=== PATIENT | male | born 1975 | race Caucasian/White ===

== ENCOUNTER 2020-07-30 09:44 | Emergency (ER) | payer SELFPAY ==
[2020-07-30] MEDS ORDERED: Ondansetron 4 MG/2 ML SDV IVPUSH ONE ×2 (09:46→11:43)
[2020-07-30] MEDS ORDERED: Sodium Chloride 0.9% 10 ML Syringe FLUSH PRN (09:46)
[2020-07-30] MEDS ORDERED: Famotidine 20 MG/2 ML SDV IVPUSH ONE (09:46)
[2020-07-30] MEDS ORDERED: Pantoprazole 40 MG Vial IVPUSH ONE (09:46)
[2020-07-30] MEDS ORDERED: Lactated Ringers 1,000 ML IV ONE (09:46)
--- NOTE | 2020-07-30 09:46 | EDM.PDOC ---
ED HPI GENERAL MEDICAL PROBLEM - General Chief Complaint: Abdominal Pain Stated Complaint: renal flank pain Time Seen by Provider: 07/30/20 09:45 Source of Information: Reports: Patient, Old Records ([facility] EMR. 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 with symptoms starting suddenly at work at about 7:30 AM. His symptoms actually started while he was having a bowel movement earlier this morning. No recent history of other abdominal pain, heartburn, emesis, diarrhea, melena, gross hematochezia, or any food intolerance, including fatty foods, etc., with normal small bowel movement earlier this is morning as above. He denies any gross hematuria or other UTI symptoms. The patient denies any chest pain/pressure, heart flutter, dizziness, orthostasis, orthopnea, paresthesias, recent decreased exercise tolerance, or any other anginal-type symptoms. The patient also denies any recent fever, cough, wheezing, dyspnea, etc.. No previous history of urolithiasis with no medications or treatment prior to arrival. Onset: Today, Sudden Onset Date: 07/30/20 Onset Time: 07:30 Duration: Intermittent Location: Reports: Abdomen (Right CVA). Denies: Head, Face, Neck, Chest, Back, Pelvis, Upper Extremity, Left, Upper Extremity, Right, Lower Extremity, Left, Lower Extremity, Right, Radiates to Quality: Reports: Stabbing Severity: Severe Improves with: Reports: None Worsens with: Reports: None Context: Reports: Other (As above). Denies: Lifting, Sick Contact, Trauma Associated Symptoms: Reports: Diaphoresis, Nausea/Vomiting (No emesis). Denies: Confusion, Chest Pain, Cough, Fever/Chills, Rash, Shortness of Breath, Syncope, Weakness Treatments CLIENT RELATION SPECIALIST: Reports: Other (see below) (None) left flank Pain Score (Numeric/FACES): 10 - Related Data Allergies Allergy/AdvReac Type Severity Reaction Status Date / Time No Known Drug Allergies Allergy Other Verified 11/18/16 23:34 Home Meds: Home Meds . [No Known Home Meds] 03/11/14 [History] Past Medical History Cardiovascular History: Reports: Arrhythmia, Hypertension, Other (See Below) Other Cardiovascular History: Previous history of hypertension including medical therapy. Unknown type of cardiac arrhythmia. Musculoskeletal History: Reports: Arthritis, Fracture, Osteoarthritis, Other (See Below) Other Musculoskeletal History: Right distal fibular fracture/ankle fracture on 11/18/2016 requiring surgeries as below. Left clavicular fracture at age 10. Psychiatric History: Reports: Addiction, Anxiety, Bipolar, Depression, Panic Attack, Psych Hospitalization(s), Suicidal Ideation, Other (See Below). Denies: Suicide Attempt Other Psychiatric History: Illicit drug use as below. Note history of single ideation on 03/11/2014 with subsequent hospitalization in [place]. Endocrine/Metabolic History: Reports: Obesity/BMI 30+ - Infectious Disease History Infectious Disease History: Reports: Novel Coronavirus (February 2020.) - Past Surgical History Musculoskeletal Surgical History: Reports: ORIF, Other (See Below) Other Musculoskeletal Surgeries/Procedures:: ORIF of right ankle/distal fibular fracture in October 2016 with subsequent unsuccessful incomplete hardware removal complicated by additional fracture at that time by patient history. 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 ED EXAM, RENAL/ - Physical Exam Exam: See Below Exam Limited By: No Limitations General Appearance: Alert, WD/WN, No Apparent Distress, Anxious (Mild to moderate) Head: Atraumatic, Normocephalic Neck: Normal Inspection, Supple, Non-Tender, Full Range of Motion. No: Lymphadenopathy (L), Lymphadenopathy (R), Thyromegaly Respiratory/Chest: No Respiratory Distress, Lungs Clear, Normal Breath Sounds, No Accessory Muscle Use, Chest Non-Tender. No: Pleural Rub, Retractions Cardiovascular: Normal Peripheral Pulses, Regular Rate, Rhythm, No Edema, No Gallop, No JVD, No Murmur, No Rub. No: Gallop/S3, Gallop/S4, Friction Rub GI/Abdominal: Normal Bowel Sounds, Soft, Non-Tender, No Organomegaly, No Distention, No Abnormal Bruit, No Mass, Pelvis Stable. No: Guarding (Male) Exam: Deferred Rectal (Males) Exam: Deferred Back Exam: Full Range of Motion. No: CVA Tenderness (L), CVA Tenderness (R) (No pain by palpation, although colic as above.), Decreased Range of Motion, Muscle Spasm, Paraspinal Tenderness, Vertebral Tenderness Extremities: Normal Inspection, Normal Range of Motion, Non-Tender, No Pedal Edema, Normal Capillary Refill. No: Geovany's Sign Neurological: Alert, Oriented, CN II-XII Intact, Normal Cognition, Normal Gait, No Motor/Sensory Deficits Psychiatric: Anxious (Mild to moderate), Depressed Mood (Borderline) Skin Exam: Warm, Dry, Intact, Normal Color, No Rash. No: Diaphoretic, Ecchymos is, Jaundice, Petechiae, Wound/Incision Lymphatic: No Adenopathy Course - Vital Signs Last Recorded V/S: Last Vital Signs Temp 36.2 C 07/30/20 09:44 Pulse 71 07/30/20 12:07 Resp 22 H 07/30/20 09:44 BP 164/97 H 07/30/20 12:07 Pulse Ox 98 07/30/20 10:28 Vital Signs - 24 hr 07/30/20 07/30/20 07/30/20 09:44 10:28 12:07 Temperature [ 36.2 C Temporal] Pulse, 70 64 71 Peripheral [ Left Pulse Oximetry] Respiratory 22 H Rate Blood Pressure 161/113 H 150/98 H 164/97 H [Left Upper Arm ] O2 Sat by Pulse 96 98 Oximetry - Orders/Labs/Meds Orders: Active Orders 24 hr Category Date Time Status Peripheral IV Care [RC] . DIRECTED Care 07/30/20 09:46 Active Nothing Per Oral Diet [DIET] Diet 07/30/20 Breakfast Active Abdomen Pelvis wo Cont [CT] Stat Exams 07/30/20 09:47 Taken CULTURE URINE [RM] Stat Lab 07/30/20 09:46 Received INR,PT,PROTHROMBIN TIME [COAG] Stat Lab 07/30/20 09:46 Ordered PTT,PARTIAL THROMBOPLSTIN TIME [COAG] Stat Lab 07/30/20 09:46 Ordered Sodium Chloride 0.9% [Saline Flush] Med 07/30/20 09:46 Active 10 ml FLUSH ASDIRECTED PRN Obtain Past Medical Record [OM.PC] Urgent Oth 07/30/20 09:46 Active Peripheral IV Insertion Adult [OM.PC] Stat Oth 07/30/20 09:46 Ordered Resuscitation Status Stat Resus Stat 07/30/20 09:46 Ordered Medication Orders Sodium Chloride (Saline Flush) 10 ml FLUSH ASDIRECTED PRN PRN Reason: Keep Vein Open Last Admin: 07/30/20 10:01 Dose: 10 ml Documented by: SLAVA Labs: Laboratory Tests 07/30/20 07/30/20 07/30/20 Range/Units 09:50 09:50 09:50 WBC 7.0 (4.0-10.2) K/uL RBC 5.27 (4.33-5.41) M/uL Hgb 16.0 (13.1-16.8) g/dL Hct 46.1 (39.0-49.0) % MCV 87.5 (84.0-98.0) fL MCH 30.4 (28.2-33.3) pg MCHC 34.7 (31.7-36.0) g/dL RDW 13.5 (11.2-14.1) % Plt Count 155 (150-350) K/uL Neut % (Auto) 58.8 (45.0-80.0) % Lymph % (Auto) 30.4 (10.0-50.0) % [place] % (Auto) 7.4 (2.0-14.0) % Eos % (Auto) 3.0 (0.0-5.0) % Baso % (Auto) 0.4 (0.0-2.0) % Neut # (Auto) 4.12 (1.40-7.00) K/uL Lymph # (Auto) 2.13 (0.50-3.50) K/uL [place] # (Auto) 0.52 (0.00-1.00) K/uL Eos # (Auto) 0.21 (0.00-0.50) K/uL Baso # (Auto) 0.03 (0.00-0.20) K/uL Sodium 136 (136-145) mmol/L Potassium 4.1 (3.5-5.1) mmol/L Chloride 103 (98-107) mmol/L Carbon Dioxide 22.9 (21.0-32.0) mmol/L BUN 11 (7-18) mg/dL Creatinine 0.90 (0.51-1.17) mg/dL Est Cr Clr Drug Dosing TNP Estimated GFR (MDRD) > 60 mL/min Glucose 98 (74-106) mg/dL Lactic Acid (0.4-2.0) mmol/L Uric Acid 6.4 (2.6-7.2) mg/dL Calcium 9.2 (8.5-10.1) mg/dL Magnesium 1.7 L (1.8-2.4) mg/dL Total Bilirubin 1.1 H (0.2-1.0) mg/dL AST 36 (15-37) U/L ALT 46 (12-78) U/L Alkaline Phosphatase 62 (46-116) IU/L Total Protein 7.8 (6.4-8.2) g/dL Albumin 4.3 (3.4-5.0) g/dL Amylase 43 (25-115) U/L Lipase 177 (73-393) U/L Specimen Type Urine Color Urine Appearance Urine pH (5.0-9.0) Ur Specific Marion (1.005-1.030) Urine Protein (NEGATIVE) mg/dL Urine Glucose (UA) (NEGATIVE) mg/dL Urine Ketones (NEGATIVE) mg/dL Urine Occult Blood (NEGATIVE) Urine Nitrite (NEGATIVE) Urine Bilirubin (NEGATIVE) Urine Urobilinogen (0.2-1.0) E.U./dL Ur Leukocyte Esterase (NEGATIVE) Urine RBC /HPF Urine WBC /HPF Ur Epithelial Cells /LPF Urine Bacteria (NONE TO FEW) /HPF Urine Mucus (NEGATIVE) /LPF 07/30/20 07/30/20 Range/Units 09:50 11:15 WBC (4.0-10.2) K/uL RBC (4.33-5.41) M/uL Hgb (13.1-16.8) g/dL Hct (39.0-49.0) % MCV (84.0-98.0) fL MCH (28.2-33.3) pg MCHC (31.7-36.0) g/dL RDW (11.2-14.1) % Plt Count (150-350) K/uL Neut % (Auto) (45.0-80.0) % Lymph % (Auto) (10.0-50.0) % [place] % (Auto) (2.0-14.0) % Eos % (Auto) (0.0-5.0) % Baso % (Auto) (0.0-2.0) % Neut # (Auto) (1.40-7.00) K/uL Lymph # (Auto) (0.50-3.50) K/uL [place] # (Auto) (0.00-1.00) K/uL Eos # (Auto) (0.00-0.50) K/uL Baso # (Auto) (0.00-0.20) K/uL Sodium (136-145) mmol/L Potassium (3.5-5.1) mmol/L Chloride (98-107) mmol/L Carbon Dioxide (21.0-32.0) mmol/L BUN (7-18) mg/dL Creatinine (0.51-1.17) mg/dL Est Cr Clr Drug Dosing Estimated GFR (MDRD) mL/min Glucose (74-106) mg/dL Lactic Acid 1.7 (0.4-2.0) mmol/L Uric Acid (2.6-7.2) mg/dL Calcium (8.5-10.1) mg/dL Magnesium (1.8-2.4) mg/dL Total Bilirubin (0.2-1.0) mg/dL AST (15-37) U/L ALT (12-78) U/L Alkaline Phosphatase (46-116) IU/L Total Protein (6.4-8.2) g/dL Albumin (3.4-5.0) g/dL Amylase (25-115) U/L Lipase (73-393) U/L Specimen Type Urinvoid Urine Color Dark yellow Urine Appearance Clear Urine pH 6.0 (5.0-9.0) Ur Specific Marion 1.025 (1.005-1.030) Urine Protein Trace H (NEGATIVE) mg/dL Urine Glucose (UA) Negative (NEGATIVE) mg/dL Urine Ketones Trace H (NEGATIVE) mg/dL Urine Occult Blood Negative (NEGATIVE) Urine Nitrite Negative (NEGATIVE) Urine Bilirubin Small H (NEGATIVE) Urine Urobilinogen 1.0 (0.2-1.0) E.U./dL Ur Leukocyte Esterase Negative (NEGATIVE) Urine RBC 0-5 /HPF Urine WBC 0-5 /HPF Ur Epithelial Cells Rare /LPF Urine Bacteria Few (NONE TO FEW) /HPF Urine Mucus Moderate H (NEGATIVE) /LPF Urine specimen set up for culture and sensitivity Meds: Medications Generic Name Dose Route Start Last Admin Trade Name Freq PRN Reason Stop Dose Admin Sodium Chloride 10 ml 07/30/20 09:46 07/30/20 10:01 Saline Flush FLUSH 10 ml ASDIRECTED PRN Administration Keep Vein Open Discontinued Medications Generic Name Dose Route Start Last Admin Trade Name Freq PRN Reason Stop Dose Admin Famotidine 40 mg 07/30/20 09:46 07/30/20 10:04 Pepcid IVPUSH 07/30/20 09:47 40 mg ONETIME ONE Administration Hydromorphone HCl 1 mg 07/30/20 11:43 07/30/20 11:54 Dilaudid IVPUSH 07/30/20 11:44 1 mg ONETIME ONE Administration Lactated Ringer's 1,000 mls @ 999 mls/hr 07/30/20 09:46 07/30/20 10:04 Ringers, Lactated IV 07/30/20 10:46 999 mls/hr .BOLUS ONE Administration Ketorolac Tromethamine 30 mg 07/30/20 09:47 07/30/20 09:50 Toradol IVPUSH 07/30/20 09:48 30 mg ONETIME ONE Administration Ondansetron HCl 4 mg 07/30/20 09:46 07/30/20 10:01 Zofran IVPUSH 07/30/20 09:47 4 mg ONETIME ONE Administration Ondansetron HCl 4 mg 07/30/20 11:43 07/30/20 11:54 Zofran IVPUSH 07/30/20 11:44 4 mg ONETIME ONE Administration Pantoprazole Sodium 40 mg 07/30/20 09:46 07/30/20 10:04 Protonix Iv IVPUSH 07/30/20 09:47 40 mg ONETIME ONE Administration Tamsulosin HCl 0.4 mg 07/30/20 09:47 07/30/20 10:05 Flomax PO 07/30/20 09:48 0.4 mg ONETIME ONE Administration - Radiology Interpretation Free Text/Narrative:: CT scan of the abdomen and pelvis without contrast using stone protocol was negative for urolithiasis, hydronephrosis, etc. Incidental findings of multilevel lumbar osteoarthritic changes and additional fatty liver. Preliminary verbal report was not received from the radiology department at [facility] as previously requested. Departure - Departure Time of Disposition: 12:22 Disposition: Home, Self-Care 01 Condition: Good Clinical Impression: Abdominal pain, Tobacco abuse counseling, Mixed anxiety and depressive disorder, Osteoarthritis, Hyperbilirubinemia, Hypomagnesemia, Fatty liver, Hypertension - Discharge Information *PRESCRIPTION DRUG MONITORING PROGRAM REVIEWED*: Not Applicable *COPY OF PRESCRIPTION DRUG MONITORING REPORT IN PATIENT MALIHA: Not Applicable Instructions: Kidney Stones, [id number], Smokeless Tobacco Information, Adult Referrals: PCP,None [Primary Care Provider] - Forms: ED Department Discharge, ED Return to Work/School Form Additional Instructions: 1. Followup with your regular provider in 5-7 days as directed for reevaluation and recommended repeat LFTs and magnesium level. Your provider may order a kidney ultrasound, additional blood work, etc. at that time depending on your symptoms. Bring these discharge instructions with you to that visit. 2. Tylenol 650 mg by mouth every 4 hours and/or OTC ibuprofen 2-3 tabs by mouth every 6 hours with food as directed./needed. You may stagger these medications for 48-72 hours only, which essentially means that you are receiving a pain medication about every 2 hours. Next dose of ibuprofen in 6 hours as needed secondary to medications given in the emergency room 3. BenGay or equivalent, heating pad, and/or ice packs as directed. 4. Strain all urine and bring stone to your regular provider or this facility as directed for further stone analysis. 5. Work excuse- See Form 6. Stop all tobacco use ALTAGRACIA as directed/per provided information and consider contacting Quit LIne, etc.. 7. Immediately after this visit verify that your cellular telephone's voicemail has been activated and is empty. Also verify that your home telephone's answering machine is operating properly and has space to receive messages. Note that it is sometimes necessary for us to be able to contact you at a later date to discuss your medical care. 8. Please remember that we are ALWAYS here for you and want to answer any questions you may have. Feel free to call the hospital any time and we call you back ALTAGRACIA. 9. Waldo diet including encouragement of oral fluids such as sports drinks, etc. for 24-48 hours as directed. Advance to regular diet as tolerated thereafter. 10. Sedation precautions with no driving, etc. for 18 hours because of emergency room medications. 11. Continue to observe your blood pressures closely through your regular provider. Sepsis Event Note (ED) - Focused Exam Vital Signs: Vital Signs Temp Pulse Resp BP Pulse Ox 07/30/20 12:07 71 164/97 H 07/30/20 10:28 64 150/98 H 98 07/30/20 09:44 36.2 C 70 22 H 161/113 H 96 - Problem List & Annotations (1) Abdominal pain SNOMED Code(s): 88608763 Code(s): R10.9 - UNSPECIFIED ABDOMINAL PAIN Status: Acute Priority: High Current Visit: Yes Onset Date: 07/30/20 Annotation/Comment:: Despite negative CT of the abdomen and pelvis as above for urolithiasis strong evidence of probable colic with nonvisible small urolithiasis based on patient's history and symptoms in the emergency room. Patient was bolused with 1 L of lactated Ringer's and initially given Flomax and IV Toradol as above. The patient initially did not wish to have any further narcotic pain medication secondary to his previous substance abuse, however he did request additional pain control. IV Dilaudid given shortly prior to patient's discharge with excellent results with sedation precautions given. IV Zofran was used to control the patient's nausea also with good results. Work excuse provided. Close follow-up by regular provider as per discharge instructions. Qualifiers: Abdominal location: right upper quadrant Qualified Code(s): R10.11 - Right upper quadrant pain (2) Tobacco abuse counseling SNOMED Code(s): 992808230, 470522157, 166312064 Code(s): Z71.6 - TOBACCO ABUSE COUNSELING Status: Chronic Priority: Medium Current Visit: Yes Annotation/Comment:: The patient was counseled on the use of Nicorette gum with chewing tobacco cessation strongly encouraged and information provided at discharge. (3) Mixed anxiety and depressive disorder SNOMED Code(s): 891840065 Code(s): F41.8 - OTHER SPECIFIED ANXIETY DISORDERS Status: Chronic Priority: Medium Current Visit: Yes Annotation/Comment:: Mild to moderate control based on today's exam. Note previous history of illicit drug use and current daily marijuana use. Patient does not wish to be on medications for his anxiety at this time and prefers to stay on his marijuana for the time being. Continue to observe closely by his regular providers. In addition, note previous history of bipolar disorder and panic attacks. (4) Osteoarthritis SNOMED Code(s): 017599084 Code(s): M19.90 - UNSPECIFIED OSTEOARTHRITIS, UNSPECIFIED SITE Status: Chronic Priority: Medium Current Visit: Yes Annotation/Comment:: Stable by history with the patient stating that his current symptoms do not appear muscular/back pain in nature, which does correlate with/confirm my physical exam today. No recent injury. This is not a Workmen's Compensation injury with colic once again being the suspected diagnosis. Qualifiers: Osteoarthritis location: multiple joints Osteoarthritis type: primary Qualified Code(s): M89.49 - Other hypertrophic osteoarthropathy, multiple sites (5) Hyperbilirubinemia SNOMED Code(s): 45000523 Code(s): E80.6 - OTHER DISORDERS OF BILIRUBIN METABOLISM Status: Chronic Priority: Medium Current Visit: Yes Annotation/Comment:: No other LFTs elevation. Close follow-up by regular provider as per discharge instructions. Note incidental fatty liver by CT scan today as above. Amylase and lipase are normal. Weight loss in moderation was advised, however the patient did not wish to have a low-fat, low-cholesterol diet provided to him at this time. (6) Hypomagnesemia SNOMED Code(s): 760974678 Code(s): E83.42 - HYPOMAGNESEMIA Status: Acute Priority: Medium Current Visit: Yes Onset Date: 07/30/20 Annotation/Comment:: Observe for now. Close follow-up by regular provider with initiation of magnesium oxide supplementation at that time depending on his clinical course. (7) Fatty liver SNOMED Code(s): 231966007 Code(s): K76.0 - FATTY (CHANGE OF) LIVER, NOT ELSEWHERE CLASSIFIED Status: Acute Priority: Medium Current Visit: Yes Onset Date: 07/30/20 Annotation/Comment:: As above (8) Hypertension SNOMED Code(s): 09246000 Code(s): I10 - ESSENTIAL (PRIMARY) HYPERTENSION Status: Chronic Priority: High Current Visit: Yes Annotation/Comment:: Significantly elevated blood pressures initially secondary to his colic with some improvement without further therapy during his ER care. Note that the patient was previously on medication for his hypertension, although not currently. Close follow-up by his regular provider with the patient likely requiring reinitiation of his previous antihypertensive medication. Qualifiers: Hypertension type: essential hypertension Qualified Code(s): I10 - Essential (primary) hypertension - Problem List Review Problem List Initiated/Reviewed/Updated: Yes - My Orders Last 24 Hours: My Active Orders 07/30/20 Breakfast Nothing Per Oral Diet [DIET] 07/30/20 09:46 Peripheral IV Care [RC] . DIRECTED CULTURE URINE [RM] Stat INR,PT,PROTHROMBIN TIME [COAG] Stat PTT,PARTIAL THROMBOPLSTIN TIME [COAG] Stat Sodium Chloride 0.9% [Saline Flush] 10 ml FLUSH ASDIRECTED PRN Obtain Past Medical Record [OM.PC] Urgent Peripheral IV Insertion Adult [OM.PC] Stat Resuscitation Status Stat 07/30/20 09:47 Abdomen Pelvis wo Cont [CT] Stat - Assessment/Plan Last 24 Hours: My Active Orders 07/30/20 Breakfast Nothing Per Oral Diet [DIET] 07/30/20 09:46 Peripheral IV Care [RC] . DIRECTED CULTURE URINE [RM] Stat INR,PT,PROTHROMBIN TIME [COAG] Stat PTT,PARTIAL THROMBOPLSTIN TIME [COAG] Stat Sodium Chloride 0.9% [Saline Flush] 10 ml FLUSH ASDIRECTED PRN Obtain Past Medical Record [OM.PC] Urgent Peripheral IV Insertion Adult [OM.PC] Stat Resuscitation Status Stat 07/30/20 09:47 Abdomen Pelvis wo Cont [CT] Stat Assessment:: As above Plan: As above. Extensive precautions were given to the patient, who is in agreement with the treatment plan. See Patient Instructions for further treatment and plan.
[2020-07-30] MEDS ORDERED: Tamsulosin 0.4 MG Cap.ER PO ONE (09:47)
[2020-07-30] MEDS ORDERED: Ketorolac 30 MG/ML SDV IVPUSH ONE (09:47)
[2020-07-30 10:18] LABS: CHLORIDE,CL 103 mmol/L (98-107); SODIUM,NA 136 mmol/L (136-145)
[2020-07-30] MEDS ORDERED: HYDROmorphone 1 MG/ML Syringe IVPUSH ONE (11:43)
[2020-07-30 13:32] VITALS: BP 164/97; PULSE 71
== END 2020-07-30 12:22 | disposition home or self-care (01) ==
LOC: LL.ED 09:44
DX: K76.0 Fatty (change of) liver, not elsewhere classified (principal); M19.90 Unspecified osteoarthritis, unspecified site; E83.42 Hypomagnesemia; E80.6 Other disorders of bilirubin metabolism; F41.8 Other specified anxiety disorders; I10 Essential (primary) hypertension; E66.9 Obesity, unspecified; Z86.16 Personal history of COVID-19; Z72.0 Tobacco use; Z71.6 Tobacco abuse counseling; Z68.36 Body mass index [BMI] 36.0-36.9, adult
CPT/HCPCS: 36415; 74176; 80053; 81001; 82150; 83605; 83690; 83735; 84550; 85025; 87086; 96374; 96375; 96376; 99284; A9270; C9113; J1170; J1885; J2405; J3490; J7120